=== PATIENT | female | born 1935 | race Caucasian/White ===

== ENCOUNTER 2021-10-23 08:44 | Outpatient (CLI) | payer OTHER ==
[~2021-10-23 08:44] MED LIST: AMARYL PO; COZAAR50 MG PO; DURICEF 500 MG CAPSULE PO; GABAPENTIN100 MG PO; INTEGRA PLUS C1 EACH PO; LEVO-T25 MCG PO; MECLIZINE PO; METFORMIN HCL500 M1 PO; OXYC1TAB9 PO; PRAVASTATIN SOD20 MG PO; SYNTHROID50 MCG PO; TENORMIN50 M1 PO; TRAM1TAB98 PO; XARELTO10 MG PO; ZOCOR5 MG PO; ZYRTEC10 M3 PO
== END 2021-10-23 10:11 | disposition home or self-care (01) ==
LOC: RX STUDY 08:44
PROVIDERS: ATTEND Specialist
DX: K22.89 Other specified disease of esophagus (principal); R13.14 Dysphagia, pharyngoesophageal phase